=== PATIENT | female | born 1990 | race Two or more races ===

== ENCOUNTER 2025-02-03 16:55 | Inpatient (IN) | payer MEDICAID ==
[~2025-02-03] VITALS: Ht 154.9 cm; Wt 63.5 kg
[2025-02-03 17:45] LABS: MEAN PLATELET VOLUME 8.3 FL (7.4-10.4); RED CELL DISTRIBUTION WIDTH 13.0 % (11.5-14.5)
[2025-02-03 18:03] LABS: CREATININE 0.94 MG/DL (0.40-0.90); TOTAL CARBON DIOXIDE 28.4 MMOL/L (24-32); eCRCL 64 ML/MIN; eGFR 68 ML/MIN
--- NOTE | 2025-02-03 19:56 | Physician Documentation ---
History of Present Illness ~ Chief Complaint: Abdominal Pain w/vomiting Stated Complaint: STOMACH PAIN Time Seen by MD: 19:55 HPI Patient presents to the emergency room for evaluation of two week history of abdominal pain mainly in the epigastric area. She states it hurts in her back at times that has well. Pain is exacerbated with eating. No diarrhea or constipation. No fevers. She is taking proton pump inhibitors and Pepto-Bismol for the pain without relief. Medication Reconciliation Allergies: Coded Allergies: No Known Allergies (Unverified , 02/03/25) Scheduled Bismuth Subsalicylate (Pepto-Bismol), 1 TAB PO Q6H, (Reported) Omeprazole (Prilosec), 1 CAP PO QAM, (Reported) Simethicone (Gas-X), 1 TAB PO Q12H, (Reported) Review of Systems ROS All review of systems negative except as per HPI Physical Exam Vital Signs: Temperature: 97.6, Source: Temporal, Heart Rate: 68, Respiratory Rate: 16, BP: 97/65, Pulse Oximetry: 98, Weight: 63.500 Oxygen Flow Rate: 0 Physical Exam General: Patient is awake, alert, oriented x4 in no acute distress and well appearing.~ Head: Normocephalic and atraumatic. Eyes: Conjunctival normal. EOMI. PERRL. ENT: Mucous membranes moist. Neck: Supple, trachea is midline. Chest: Clear to auscultation bilaterally without rales, rhonchi, or wheezes. There is no accessory muscle use or retractions. Cardiac: RRR without murmurs, gallops, or rubs. Abd: Soft, nondistended, positive Morton's sign Progress Results/Orders Results/Orders Orders - REILLY MATHUR MD Ultrasound Of Abdomen (02/03/25 20:04) Page Hospitalist (02/03/25 21:56) Fill Out Med Reconciliation (02/03/25 21:56) Normal Saline 1000ml (0.9% Sodium Chlori (02/03/25 22:00) Completed Orders - REILLY MATHUR MD Ultrasound Of Abdomen (02/03/25 20:04) Ondansetron Disint. Tablet (Zofran Odt T (02/03/25 20:20) Ibuprofen Tablet (Motrin Tablet) (02/03/25 20:20) Piperacillin/Tazo 3.375gm/50ml (Zosyn 3. (02/03/25 22:00) Medications Received in ER Medications (Trade) Dose Ordered Sig/Aura Route PRN Reason Start Time Stop Time Status Last Admin Dose Admin (Zofran ODT tablet) 4 mg ONCE ONCE PO 02/03/25 20:20 02/03/25 20:21 DC 02/03/25 20:40 4 MG (Motrin tablet) 800 mg ONCE ONCE PO 02/03/25 20:20 02/03/25 20:21 DC 02/03/25 20:40 800 MG Vital Signs 02/03/25 02/03/25 02/03/25 02/03/25 17:17 19:01 20:17 20:17 Temp 97.6 97.5 Pulse 77 68 53 Resp 16 16 18 B/P (MAP) 127/67 97/65 (76) 95/63 (74) Pulse Ox 99 98 100 O2 Flow Rate 0 0 0 02/03/25 21:23 Temp 97.8 Pulse 58 Resp 18 B/P (MAP) 105/71 (82) Pulse Ox 99 O2 Flow Rate 0 Laboratory Tests Test 02/03/25 17:33 02/03/25 19:00 White Blood Count 6.2 Red Blood Count 4.34 Hemoglobin 13.2 Hematocrit 39.4 Mean Corpuscular Volume 90.7 Mean Corpuscular Hemoglobin 30.4 Mean Corpuscular Hemoglobin Concent 33.5 Red Cell Distribution Width 13.0 Platelet Count 345 Mean Platelet Volume 8.3 Neutrophils (%) (Auto) 65.4 Lymphocytes (%) (Auto) 28.6 Monocytes (%) (Auto) 4.4 Eosinophils (%) (Auto) 1.1 Basophils (%) (Auto) 0.5 Neutrophils # (Auto) 4.1 Lymphocytes # (Auto) 1.8 Monocytes # (Auto) 0.3 Eosinophils # (Auto) 0.1 Basophils # (Auto) 0.0 CBC Comment Sodium Level 142 Potassium Level 4.0 Chloride Level 106 Carbon Dioxide Level 28.4 Anion Gap 8 Blood Urea Nitrogen 10 Creatinine 0.94 H Estimated GFR/1.73 m2 68 BUN/Creatinine Ratio 10.6 Glucose Level 121 H Calcium Level 8.9 Total Bilirubin 0.2 Aspartate Amino Transf (AST/SGOT) 18 Alanine Aminotransferase (ALT/SGPT) 27 Alkaline Phosphatase 63 Total Protein 8.1 Albumin 3.9 Globulin 4.2 Albumin/Globulin Ratio 0.9 L Lipase 54 Chemistry Comments Urine Specimen Description Cln catch midstream Urine Color Yellow Urine Clarity Slightly cloudy Urine pH 8.0 Urine Specific [place] 1.015 Urine Protein Negative Urine Glucose (UA) Negative Urine Ketones Negative Urine Occult Blood Negative Urine Nitrite Negative Urine Bilirubin Negative Urine Urobilinogen 0.2 Urine Leukocyte Esterase Negative Urine RBC 0-2 Urine WBC 0-4 Urine Squamous Epithelial Cells Moderate Urine Bacteria None seen Urine Culture Indicated Not ind Volume Urine Centrifuged 10 ml Urine HCG, Qualitative Negative Urine Comment Medical Decision Making Findings Patient presents to the emergency room for evaluation of abdominal pain. Differentials include but are not limited to gastritis cholecystitis pancreatitis diverticulitis viral syndrome constipation small-bowel obstruction therefore emergent labs and imaging indicated. Labs reassuring however ultrasound shows findings consistent with cholecystitis. Zosyn initiated. We will admit patient for cholecystectomy Departure Admitted to Inpatient Unit: yes, to hospitalist Impression: Primary Impression: Cholecystitis Condition: Guarded Referrals: NO PRIMARY CARE PROVIDER (PCP) Signature Scribe Signature: No scribe Attestation: The note accurately reflects work and decisions made by me.Reilly Mathur MD 02/03/25 22:36 REILLY MATHUR MD Feb 03, 2025 19:56
[2025-02-03] MEDS ORDERED: OMEP40CA21 PO (20:37)
[2025-02-03] MEDS ORDERED: SIME125T7 PO (20:37)
[2025-02-03] MEDS ORDERED: BISM262T15 PO (20:37)
[2025-02-03] MEDS: ibuprofen tablet 400 MG TABLET PO ONE (20:40)
[2025-02-03] MEDS: ondansetron 4mg rapidly disintigrating tab PO ONE (20:40)
[2025-02-03 20:49] LABS: LEUKOCYTE ESTERASE ,URINE NEGATIVE (Neg); NITRITES, URINE NEGATIVE (Neg); OCCULT BLOOD,URINE NEGATIVE (Neg); URINE HCG NEGATIVE (NEG)
[2025-02-03 21:01] LABS: UA COLLECTION TYPE CLN CATCH MIDSTREAM
[2025-02-03 21:02] LABS: SQUAMOUS EPITHELIAL CELL,UR MODERATE /LPF (FEW)
--- NOTE | 2025-02-03 21:37 | RADIOLOGY REPORT ---
CLINICAL HISTORY: abd pain TECHNIQUE: Transabdominal sonogram was performed of the right upper quadrant. COMPARISON: None FINDINGS: The liver is increased in echogenicity. There is no focal parenchymal abnormality. No intrahepatic biliary ductal dilatation is present. The liver measures 13.6 cm. The gallbladder contains stones with mild 4 mm wall thickening. The sonographic osborne's sign was reported to be present. The common bile duct is normal in caliber, measuring 4 mm. The partially visualized pancreas is grossly unremarkable. The right kidney is normal in echogenicity and measures 9.4 cm in length. There is no evidence for hydronephrosis or calculi. IMPRESSION: Constellation of findings is concerning for acute cholecystitis. Diffuse hepatic steatosis.
[2025-02-03] MEDS ORDERED: magnesium Cl slow-release 64mg tablet PO PRN (23:10)
[2025-02-03] MEDS ORDERED: magnesium hydroxide 30ml (MOM) UD suspension PO PRN (23:10)
[2025-02-03] MEDS ORDERED: mag hydrox/Alum hydrox/simeth 30ml oral suspension PO PRN (23:10)
[2025-02-03] MEDS ORDERED: potassium Cl 40MEQ/1/2NS 520ml 520 ML IV PRN (23:10)
[2025-02-03] MEDS ORDERED: potassium Cl 20 mEq SR tablet PO PRN ×2 (23:10)
[2025-02-03] MEDS ORDERED: magnesium sulf-water 4G/100mL 100 ML IV PRN (23:10)
[2025-02-03] MEDS ORDERED: HYDROcodone/acetaminophen 10/325mg tab PO PRN (23:10)
[2025-02-03] MEDS ORDERED: magnesium sulf-water 2g/50mL 50 ML IV PRN (23:10)
[2025-02-03] MEDS: normal saline 1000ml 1,000 ML IV SCH (23:13)
[2025-02-03] MEDS: normal saline 1000ml 1,000 ML IV ONE (23:13)
[2025-02-03] MEDS: piperacillin/tazo 3.375gm/50ml 50 ML IV ONE (23:13)
--- NOTE | 2025-02-03 23:19 | HISTORY AND PHYSICAL-Residence ---
History & Physical Providers to CC Resident Creating Document: DAYAMI CHURCH RES ~ History of Present Illness Reason for Admit\Complaint: Abdominal pain History of Present Illness This 35-year-old female presented to the ER with a chief concern of worsening abdominal pain in the last two weeks. She does not understand [place] and speaks [place]. Used parts interpreter: Name-Ms. Zamorano, court interpreter ID - [id number]. Complains of abdominal pain for the last two weeks which got worse in the last few days. Constant diffuse abdominal pain which gets worse with solid food intake. Has nausea and vomited thrice in the last two weeks. Food in the vomitus and denies any blood in it. Has chills but denies any fever. Mentioned that the pain radiates to her back and gets worse when she takes a deep breath. She is also waking up in the middle of the night with the pain in the last few days. Had bloating in the last three days and so presented to the ER. Had bowel movement about two days back but mentioned that it was because she did not eat much. Denies passing any gas. No chest pain, shortness of breath, diarrhea, dizziness, dysuria or other concerns. Used omeprazole and Bismol which did not help with the symptoms. Mentioned that she had gastritis in the past Allergies: Coded Allergies: No Known Allergies (Unverified , 02/03/25) Home Medications Home Medications Active Reported Pepto-Bismol (Bismuth Subsalicylate) 262 Mg Tab.chew 1 Tab PO Q6H 3 Days Gas-X (Simethicone) 125 Mg Tab.chew 1 Tab PO Q12H 30 Days Prilosec (Omeprazole) 40 Mg Capsule 1 Cap PO QAM Past Medical History Past Medical History Gastritis Past Surgical History Surgical History Comment about 4 years back Past Social History Social History Comment Denies smoking tobacco (tried few cigarettes when she was a teenager), occasionally drinks alcohol-one or two glasses of wine in couple of months. Denies abusing any other recreational drugs ROS ROS Constitutional: Chills present. No fever, dizziness, weakness, weight gain or loss Eyes: No pain, erythema, discharge, blurring of vision ENT: No sore throat, epistaxis, tinnitus Cardiovascular: No chest pain, chest pressure, chest discomfort, palpitations, syncope, lower extremity edema, paroxysmal nocturnal dyspnea Respiratory: No shortness of breath, cough, hemoptysis Gastrointestinal: Nausea, vomiting and abdominal pain, abdominal pain present. Normal appetite. No diarrhea, constipation, hematemesis, melena or fresh blood Genitourinary: No frequency, urgency, nocturia, hematuria or dysuria Musculoskeletal: No arthralgias or myalgias Integumentary: No change in skin, hair, nails. No swelling, bruising, abrasions Neurologic: No headache, neck pain, numbness or tingling of the extremities, weakness Psychiatric: No delusions, depression, loss of interest in normal activity or change in sleep pattern, hallucinations, suicidal ideations Endocrine: No fatigue, weakness, polydipsia, polyuria, change in appetite, heat or cold intolerance, sweating, dry skin Hematological: No bleeding, petechiae, bruising Allergies: No asthma or urticaria Exam Vitals: Vital Signs Date Time Temp Pulse Resp B/P (MAP) Pulse Ox O2 Delivery O2 Flow Rate FiO2 02/03/25 22:30 97.6 76 20 103/67 (79) 100 0 General: Alert and oriented x4 HEENT: Normocephalic and atraumatic. Pupils equal round reactive to light and accommodation. Extraocular movements intact. Oral and nasal mucosa moist Neck: Trachea is in midline. No masses or JVD Chest: Bilateral normal breath sounds. No crackles, rhonchi or wheezes Cardiovascular: Regular rate and rhythm. S1-S2 normal. No rubs or murmurs Abdomen: Soft, mildly distended and tenderness present in epigastric region, right hypochondriac, left iliac and lumbar region. Morton's sign positive. Normoactive bowel sounds Extremities: No cyanosis, clubbing or edema Central Nervous System: No gross sensory or motor deficits. CN II to XII grossly intact. No cerebellar signs Musculoskeletal: No spinal or paraspinal tenderness Skin: Warm and dry Diagnostic Data Last Recorded Lab Results: 02/03/25 1733 02/03/25 173 Advance Care Planning Advanced Care plannin - 30 Minutes Additional Plan Acute cholecystitis No elevated white count, fever, tachypnea tachycardia Abdominal ultrasound showed acute cholecystitis, diffuse hepatic steatosis, normal CBD Abdomen/pelvis CT ordered as patient complains of diffuse abdominal pain and also has tenderness in the left lumbar and iliac region Received Zosyn 3.375 g IV once and 1 L normal saline bolus in the ER Started Zosyn 3.375 g IV q.8h Received Zofran 4 mg p.o. once and ibuprofen 100 mg p.o. once in the ER Started Protonix 40 mg IV daily Started normal saline at 100 cc/hour Lipase not elevated. Pending lactic acid UA did not show any signs of infection. Urine HCG negative Chest x-ray shows no acute cardiopulmonary abnormalities ER provider left a message to the on-call surgeon-Dr. Cardenas Recommend reconsulting the surgeon in a.m. NPO now for possible surgery tomorrow Continue Zofran 4 mg IV q.6h p.r.n. for nausea/vomiting Continue morphine 1 mg IV q.4h p.r.n. for moderate pain and morphine 2 mg IV q.4h p.r.n. for severe # Pending EKG DVT prophylaxis: Lovenox 40 mg subcutaneous daily starting tomorrow night GI prophylaxis: Protonix 40 mg IV daily Dayami Church MD Internal Medicine Resident, PGY 3 Date of Service: Feb 03, 2025 Billing Provider: LIZZETH JAY MD Common Visit Codes: [id number] INP/OBS CARE (HIGH) Assessment/Plan Assessment Evaluated patient with the help of resident. Discussed the case with her. Reviewed her notes. Agree with her assessments and plans. I also reviewed the patient's records labs, radiology along with notes from other providers. No additional points at this time. DAYAMI CHURCH RES Feb 03, 2025 23:19 LIZZETH JAY MD Feb 04, 2025 04:05
--- NOTE | 2025-02-03 23:30 | RADIOLOGY REPORT ---
CLINICAL HISTORY: rule out aspiration TECHNIQUE: Single view of the chest was obtained. COMPARISON: None FINDINGS: The heart size and pulmonary vasculature are normal. The lungs are clear. IMPRESSION: NO ACUTE CARDIOPULMONARY PROCESS.
--- NOTE | 2025-02-03 23:55 | ELECTROCARDIOGRAPH REPORT ---
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
[2025-02-04] VITALS (24 sets, daily range): BP systolic 77–119; BP diastolic 33–77; PULSE 67–82; RESP 13–20; TEMP 97.4–98.8; O2SAT 95–100
[2025-02-04] MEDS: normal saline 250ml IV soln 250 ML IV ONE (04:59)
[2025-02-04 06:06] LABS: MEAN PLATELET VOLUME 7.9 FL (7.4-10.4); RED CELL DISTRIBUTION WIDTH 13.2 % (11.5-14.5)
[2025-02-04 06:14] LABS: APTT 25 SECONDS (22-32); INR 1.1 INR
[2025-02-04 06:19] LABS: CREATININE 0.87 MG/DL (0.40-0.90); TOTAL CARBON DIOXIDE 27.3 MMOL/L (24-32)
[2025-02-04 06:20] LABS: PHOSPHORUS 3.3 MG/DL (2.3-4.5); eCRCL 69 ML/MIN; eGFR 75 ML/MIN
[2025-02-04] MEDS: piperacillin/tazo 3.375gm/50ml 50 ML IV SCH (07:44)
[2025-02-04] MEDS: K and/or MAG REPLACEMENT MC SCH (08:00)
[2025-02-04] MEDS: normal saline 1000ml 1,000 ML IVB ONE (10:41)
[2025-02-04] MEDS ORDERED: morphine 4 MG/ML inj SYRINge IV PRN (11:58)
[2025-02-04] MEDS: INDOCYANINE GREEN 25 MG/10 ML VIAL IV ONE (13:21)
--- NOTE | 2025-02-04 13:44 | CONSULTATION REPORT ---
History of Present Illness Providers to CC CC: ASHLEY KAUR MD ~ Reason for Admit\\Admit Dx: Abdominal pain History of Present Illness Otherwise healthy 35-year-old woman who reports a history of intermittent epigastric and right upper quadrant pain that radiates around to the back. Severe episode yesterday evening and presented to the emergency room last night where she was found to have both clinical and radiographic evidence of acute calculous cholecystitis. She was admitted for surgical consultation and management. I saw her earlier this morning. Her pain had mostly resolved and was only between her shoulder blades. This was by far, the worst "attack" that she has had historically. She denies any history of jaundice, dark urine or dwayne colored stool. Allergies: Coded Allergies: No Known Allergies (Unverified , 02/03/25) Home Medications Home Medications Active Reported Pepto-Bismol (Bismuth Subsalicylate) 262 Mg Tab.chew 1 Tab PO Q6H 3 Days Gas-X (Simethicone) 125 Mg Tab.chew 1 Tab PO Q12H 30 Days Prilosec (Omeprazole) 40 Mg Capsule 1 Cap PO QAM Past Medical History Medical History Comment Gastroesophageal reflux disease Past Surgical History Surgical History Comment None Past Family History Family History Comment Noncontributory Past Social History Social History Comment neg x 3 Physical Exam Last Vital Signs Recorded: RN Vital Signs have been reviewed: Yes, Temperature: 97.4, Source: Oral, Heart Rate: 69, Respiratory Rate: 18, BP: 86/49, Pulse Oximetry: 95, Weight: 63.500 General Appearance: alert, WD/WN EENT: PERRL/EOMI; No: scleral icterus (R), scleral icterus (L) Neck: normal inspection, supple Respiratory: lungs clear Cardiovascular: regular rate, rhythm Gastrointestinal Softly distended Mild epigastric and right upper quadrant tenderness to palpation No palpable masses or hernias No rebound tenderness Morton sign negative Rectal: deferred Back: normal inspection, no CVA tenderness Extremities: normal range of motion, non-tender, no edema Neurologic: oriented x4 Psychiatric: normal mood/affect; No: anxiety Skin: normal color, warm/dry Lymphatic: no adenopathy Review of Systems ROS ROS Comments: Reviewed and negative with the exception of those found in the history of present illness Results Diagram Lab Result Diagram: 02/04/2551502/04/25515 Assessment/Plan Problems/Diagnosis: (1) Acute calculous cholecystitis Assessment & Plan: The risks, benefits, and alternatives to a robotic assisted, laparoscopic possible open cholecystectomy were discussed with the patient. Risks include, but are not limited to, bleeding, infection, injury to an intra- abdominal structure, injury to the biliary tree, postoperative bile leak and retained common bile duct stone. Patient verbalized understanding and wishes to proceed with surgery. Will do so today. ASHLEY KAUR MD Feb 04, 2025 13:44
[2025-02-04] MEDS ORDERED: iohexol 300mg/ml 100ml inj. ONE (13:47)
[2025-02-04] MEDS: ondansetron/PF 4mg/2ml inj IV PRN ×2 (14:09→18:08)
[2025-02-04] MEDS ORDERED: BUPIVAcaine 2.5mg/ml inj 50ml vial (contains preservative) ONE (14:38)
[2025-02-04] MEDS ORDERED: LIDOcaine 1% 30ml preserv. free vial ONE (14:38)
--- NOTE | 2025-02-04 14:40 | RADIOLOGY REPORT ---
CLINICAL INFORMATION: Suspected acute cholecystitis. Abdominal pain. TECHNIQUE: Axial CT images of the abdomen were obtained after the uneventful administration of 100 mL Omnipaque 300 IV contrast. Coronal and sagittal reformatted images were obtained, reviewed, and stored. All CT scans at this medical facility are performed using dose modulation techniques as appropriate to a performed exam including the following: Automated exposure control was utilized; adjustment of the MA and/or KV according to patient size; and use of iterative reconstruction technique. CTDIvol = 9.79 mGy DLP = 348.06 mGy-cm COMPARISON: US ULTRASOUND OF ABDOMEN on DOS: 02/03/25 FINDINGS: Lung bases: Lung bases are clear. Liver: Unremarkable. No abnormal density or focal lesion. Biliary: Distended gallbladder with gallbladder wall thickening. Faintly visualized gallstones in the gallbladder. Cystic duct is also distended. Common bile duct is within normal limits in size. No intrahepatic biliary ductal dilatation. Spleen: Unremarkable. Pancreas: Unremarkable. No inflammatory changes, ductal dilatation, or mass identified. Adrenal glands: 0.9 cm left adrenal nodule is indeterminate on this single phase of contrast. Kidneys: No hydronephrosis or mass. Aorta/Vascular: No aneurysm or significant calcification. Lymph Nodes: No mass or lymphadenopathy. Bowel/mesentery: Nonspecific nondilated fluid-filled small bowel loops. No small bowel obstruction. Appendix is visualized and appears unremarkable. No free air or free fluid visualized. Abdominal wall: No mass or hernia. Bones: No acute fracture or focal intraosseous lesion. IMPRESSION: 1. Distended gallbladder with gallbladder wall thickening and prominence of the cystic duct, consistent with reported clinically suspected acute cholecystitis. 2. Indeterminate left adrenal nodule. Nonemergent MRI adrenal mass protocol could be obtained to further characterize.
[2025-02-04] MEDS ORDERED: midazolam 1 mg/ML 2ml injection ONE (15:58)
[2025-02-04] MEDS ORDERED: fentaNYL/PF 50MCG/1 ML 2ML syringe ONE (15:58)
[2025-02-04] MEDS ORDERED: propofol inj 20 ML IV ONE (16:00)
[2025-02-04] MEDS ORDERED: rocuronium 10mg/ml inj IV ONE (16:01)
[2025-02-04] MEDS ORDERED: glycopyrrolate 0.2mg/ml inj ONE (16:58)
[2025-02-04] MEDS ORDERED: ondansetron/PF 4mg/2ml inj ONE (16:58)
[2025-02-04] MEDS ORDERED: dexamethasone sod phosphate 4mg/ml inj. ONE (16:58)
[2025-02-04] MEDS ORDERED: HYDROcodone/acetaminophen 5mg/325mg tablet PO PRN (17:30)
[2025-02-04] MEDS ORDERED: PCA WASTE DOCUMENTATION 1 MG ML MC SCH (17:30)
--- NOTE | 2025-02-04 17:38 | OPERATIVE REPORT ---
Operative Report Providers to CC CC: MICHAEL KAUR MD ~ Date of Procedure: Feb 04, 2025 Pre-Operative Diagnosis: ACUTE CHOLECYSTITIS Post-Operative Diagnosis Acute calculous cholecystitis Procedure Performed Robotic assisted laparoscopic cholecystectomy Surgeon: Michael Kaur MD FACS Core Blower Operator None Anesthesiologist: Roberth Cano Type of Anesthesia: General Findings: Acute calculous cholecystitis with a edematous gallbladder and large stone lodged in the gallbladder neck Clear visualization of the critical view of safety, confirmed with fluorescent cholangiography/firefly Wound class II Complications None Prosthetics\Implants used: None Estimated Blood Loss: Minimal Specimen Removed: Gallbladder Description of Procedure: Patient was brought to the operating room and identified by the nursing staff and the attending physician. Patient was placed supine and general anesthesia was induced. A supraumbilical, midline incision was made, long enough to accommodate a 12 mm Roach port. Roach technique was used to gain entry into the abdomen. Stay sutures were placed in the Roach port anchored to the fascia. Abdomen was insufflated without incident. Laparoscope was inserted and the abdomen surveyed. Secondary, 8.5 mm robotic trochars were placed in the left upper quadrant and right lateral abdomen. Robotic arm was docked to the patient. Robotic instruments were guided intra- abdominally under laparoscopic visualization. Gallbladder was massively distended and edematous consistent with the acute calculous cholecystitis. Gallbladder was just pliable enough to grasp it with the robotic ProGrasp. Fundus of the gallbladder was grasped and retracted over the dome of the liver. Infundibulum was retracted towards the right lower quadrant. Firefly technology was used to obtain a fluorescent cholangiogram and visualize the pertinent anatomy. Cystic duct was not clearly visualized, but the common duct was clearly visible and fluoresced using firefly/fluorescent cholangiography. Peritoneum overlying the triangle was incised with hook electrocautery. This allowed for circumferential dissection of the cystic duct and artery. Critical view of safety was obtained. Proximal portion of the cystic duct was now visible, fluorescent with contrast. Duct and artery were then clipped with hemo-lock clips and both structures divided. Gallbladder was retracted laterally and dissected out of the gallbladder fossa. Gallbladder was set aside and fluorescent cholangiogram of the gallbladder fossa was used to confirm no evidence of bile leak. Gallbladder was placed in a laparoscopic retrieval bag. Secondary trochars were removed and the abdomen allowed to deflate. Roach port was removed with the specimen in its retrieval bag. Fascia at the umbilical port site was closed with 0 Vicryl sutures. Skin was closed with 4-0 Monocryl sutures in a subcuticular fashion About 40 cc of local anesthetic was used during the case. Sterile dressings were applied. Patient was awakened and taken to the postanesthesia care unit in stable condition. Counts repoted as correct: Yes MICHAEL KAUR MD Feb 04, 2025 17:38
[2025-02-04] MEDS: ringers solution, lacted 1,000 ML IV SCH (18:00)
[2025-02-04] MEDS ORDERED: hydrALAZINE 20mg/ml inj. IV PRN (18:00)
[2025-02-04] MEDS ORDERED: fentaNYL/PF 50MCG/1 ML 2ML syringe IV PRN ×2 (18:00)
[2025-02-04] MEDS ORDERED: labetalol 20mg/4ml (5mg/ml) syringe IV PRN (18:00)
[2025-02-04] MEDS ORDERED: HYDROmorphone/PF 0.2 MG/ML SYRINGE IV PRN ×2 (18:00)
[2025-02-04] MEDS: morphine 4 MG/ML inj SYRINge IV PRN (18:04)
[2025-02-04] MEDS: acetaminophen 1,000mg/100ml IV 100 ML IV PRN (18:12)
--- NOTE | 2025-02-04 19:27 | PROGRESS NOTE ---
Daily Progress Note Providers to CC ~ Antibiotic Timeout Antibiotic Ordered?: Yes Subjective Patient was seen in presence of family members before she left for surgery. Dr. Cardenas did Robotic assisted laparoscopic cholecystectomy for acute calculous cholecystitis today. Objective Vital Signs Date Time Temp Pulse Resp B/P (MAP) Pulse Ox O2 Delivery O2 Flow Rate FiO2 02/04/25 18:04 15 02/04/25 17:14 97.7 82 93/45 (61) 100 Mask 6.0 Result Diagram: 02/04/2516 02/04/25 0516 Coagulation Studies Laboratory Tests Test 02/04/25 05:16 Prothrombin Time 10.9 SECONDS (9.0-12.0) INR International Normalized Ratio 1.1 INR Activated Partial Thromboplast Time 25 SECONDS (22-32) Coagulation Comments Problem\Assessment\Plan Acute cholecystitis No elevated white count, fever, tachypnea tachycardia Abdominal ultrasound showed acute cholecystitis, diffuse hepatic steatosis, normal CBD Abdomen/pelvis CT showed Distended gallbladder with gallbladder wall thickening and prominence of the cystic duct, consistent with reported clinically suspected acute cholecystitis. on Zosyn 3.375 g IV q.8h Received Zofran 4 mg p.o. once and ibuprofen 100 mg p.o. once in the ER on Protonix 40 mg IV daily continue normal saline at 100 cc/hour Lipase not elevated. normal lactic acid Continue Zofran 4 mg IV q.6h p.r.n. for nausea/vomiting Continue morphine 1 mg IV q.4h p.r.n. for moderate pain and morphine 2 mg IV q.4h p.r.n. for severe 02/04/25-Dr. Cardenas did Robotic assisted laparoscopic cholecystectomy for acute calculous cholecystitis today. # blood pressure was borderline manual blood pressure checked it was 90 /66mmhg patient also received normal saline bolus in AM DVT prophylaxis: Lovenox 40 mg subcutaneous daily starting tomorrow night GI prophylaxis: Protonix 40 mg IV daily Patient's current condition is guarded we will continue to monitorand follow patient in a.m. Date of Service: Feb 04, 2025 Billing Provider: LAURA ALDRIDGE MD Common Visit Codes: [id number] INP/OBS CARE(MOD) LAURA ALDRIDGE MD Feb 04, 2025 19:27
[2025-02-04] MEDS: HYDROcodone/acetaminophen 10/325mg tab PO PRN (19:52)
[2025-02-04] MEDS: enoxaparin 40mg/0.4ml syringe SQ SCH (23:08)
[2025-02-05] VITALS (7 sets, daily range): BP systolic 90–106; BP diastolic 58–65; PULSE 61–72; RESP 16–20; TEMP 97.6–98.1; O2SAT 99–100
[2025-02-05 07:18] LABS: MEAN PLATELET VOLUME 8.3 FL (7.4-10.4); RED CELL DISTRIBUTION WIDTH 13.0 % (11.5-14.5)
[2025-02-05 07:29] LABS: APTT 26 SECONDS (22-32); INR 1.1 INR
[2025-02-05 07:44] LABS: CREATININE 0.79 MG/DL (0.40-0.90); PHOSPHORUS 3.5 MG/DL (2.3-4.5); TOTAL CARBON DIOXIDE 24.8 MMOL/L (24-32); eCRCL 76 ML/MIN; eGFR 83 ML/MIN
[2025-02-05] MEDS ORDERED: ACET-1008 PO (14:54)
[2025-02-05] MEDS ORDERED: HYDR-3965 PO (14:56)
[2025-02-05] MEDS ORDERED: METR-159 PO (14:56)
[2025-02-05] MEDS ORDERED: CIPR-259 PO (14:56)
[2025-02-05] MEDS ORDERED: DOCU-148 PO (14:56)
--- NOTE | 2025-02-05 19:10 | DISCHARGE SUMMARY ---
Discharge Summary Providers to CC ~ Discharge Summary Admission Diagnosis: ACUTE CHOLECYSTITIS Hospital Course DATE OF ADMISSION: February 03, 2025 DATE OF DISCHARGE:February 05, 2025 CBC testing done on February 05, 2025 WBC 8.7 hemoglobin 12.1 hematocrit 35.4 platelet count 308. CMP done on February 05, 2025 sodium 139 potassium 3.9 creatinine 0.79 GFR 83 normal liver enzymes lipase 54. Blood culture showed no growth after one day. CT ABDOMENIMPRESSION: 1. Distended gallbladder with gallbladder wall thickening and prominence of the cystic duct, consistent with reported clinically suspected acute cholecystitis. 2. Indeterminate left adrenal nodule. Nonemergent MRI adrenal mass protocol could be obtained to further characterize. CHEST,SINGLE VIEW IMPRESSION: NO ACUTE CARDIOPULMONARY PROCESS. ULTRASOUND OF ABDOMENIMPRESSION: Constellation of findings is concerning for acute cholecystitis. Diffuse hepatic steatosis. Discharge Diagnosis\\Comment: Acute calculous cholecystitis Operations\\Procedures: Robotic assisted laparoscopic cholecystectomy Consultants: Dr. Cardenas Complications: None Condition on DC: Stable New Medications: Ciprofloxacin HCl (Cipro) 500 Mg Tablet 1 TAB PO Q12H for 5 Days, #10 TAB Docusate Sodium (Colace) 100 Mg Capsule 1 CAP PO Q12H for 7 Days, #14 CAP 0 Refills Hold for persistent loose stools Hydrocodone Bit/Acetaminophen 5/325 MG ([place] 5/325 MG) 5 Mg/325 Mg Tablet 1 TAB PO Q6H PRN for moderate or severe pain 4-10 for 5 Days, #20 TAB Metronidazole* (Flagyl*) 500 Mg Tablet 1 TAB PO BID for 5 Days, #10 TAB Changed Medications: Acetaminophen (Tylenol) 325 Mg Tablet 1 TAB PO Q6H PRN for MILD PAIN , FEVER for 5 Days, #21 TAB (Changed from: QDAY PRN; 30; 30) Continued Medications: Omeprazole (Prilosec) 40 Mg Capsule 1 CAP PO QAM, CAP Discontinued Medications: Bismuth Subsalicylate (Pepto-Bismol) 262 Mg Tab.chew 1 TAB PO Q6H for 3 Days, #30 TAB 0 Refills Simethicone (Gas-X) 125 Mg Tab.chew 1 TAB PO Q12H for gas for 30 Days, #60 TAB 0 Refills Discharge Summary: As per admitting provider's history and physical note" This 35-year-old female presented to the ER with a chief concern of worsening abdominal pain in the last two weeks. She does not understand Uzbek and speaks Kazakh. Used pipe crew foreman: Name-Ms. Zamorano, office administration ID -[id number]. Complains of abdominal pain for the last two weeks which got worse in the last few days. Constant diffuse abdominal pain which gets worse with solid food intake. Has nausea and vomited thrice in the last two weeks. Food in the vomitus and denies any blood in it. Has chills but denies any fever. Mentioned that the pain radiates to her back and gets worse when she takes a deep breath. She is also waking up in the middle of the night with the pain in the last few days. Had bloating in the last three days and so presented to the ER. Had bowel movement about two days back but mentioned that it was because she did not eat much. Denies passing any gas. No chest pain, shortness of breath, diarrhea, dizziness, dysuria or other concerns. Used omeprazole and Bismol which did not help with the symptoms. Mentioned that she had gastritis in the past" During hospitalization patient was treated for Acute cholecystitis No elevated white count, fever, tachypnea tachycardia Abdominal ultrasound showed acute cholecystitis, diffuse hepatic steatosis, normal CBD Abdomen/pelvis CT showed Distended gallbladder with gallbladder wall thickening and prominence of the cystic duct, consistent with reported clinically suspected acute cholecystitis. on Zosyn 3.375 g IV q.8h Received Zofran 4 mg p.o. once and ibuprofen 100 mg p.o. once in the ER on Protonix 40 mg IV daily continue normal saline at 100 cc/hour Lipase not elevated. normal lactic acid Continue Zofran 4 mg IV q.6h p.r.n. for nausea/vomiting Continue morphine 1 mg IV q.4h p.r.n. for moderate pain and morphine 2 mg IV q.4h p.r.n. for severe 02/04/25-Dr. Cardenas did Robotic assisted laparoscopic cholecystectomy for acute calculous cholecystitis today. # blood pressure was borderline manual blood pressure checked it was 90 /66mmhg patient also received normal saline bolus in AM . Blood Pressure is stable during hospitalization Patient is feeling better she has been afebrile and getting discharged home in stable condition. Patient is seen and examined on the day of discharge. All questions and queries answered to the best of my professional medical knowledge. I heard patient's concerns and address appropriately. Patient was cleared by Dr Cardenas and Physical therapy team for home discharge . cytology laboratory manager involved in patient's discharge plan. Discharge instructions provided to the patientActividad segn tolerancia No levantar ms de 7 kg kvng 2 semanas Dieta segn tolerancia Dejar los vendajes/apsitos puestos kvng 10 a 14 [place] Puede ducharse a partir de maana Myriam de seguimiento con el Dr. Cardenas en 2 o 3 semanas. Llamar para solicitar myriam: [phone] Repeat CBC sed rate procalcitonin in 3-5 days with PCP in outpatient setting. Advanced diet from full liquid to regular diet as tolerated. General-patient not in any acute distress, alert awake oriented, age- appropriate, looks comfortable HEENT-atraumatic normocephalic, neck supple without elevated JVD, no thyromegaly or carotid bruit. No lymphadenopathy bilaterally. Eyes-no icterus or pallor seen in eyes Chest-clear to auscultation bilaterally, breathing nonlabored no tachypnea, no wheezing, no crepitation, no crackles. Heart-S1-S2 normal, regular heart rate no murmur Abdomen bowel sounds positive on auscultation, soft nondistended , surgical dressing present over abdomen, tenderness present on palpation over surgical site and right upper quadrant, no guarding, no rigidity Skin no active skin rash Neurology-grossly intact, nonfocal alert awake oriented Extremity- no pedal edema able to move all 4 extremities Psychiatry - patient is not confused or agitated cooperated during physical examination *Problems/Diagnosis: (1) Acute calculous cholecystitis Total Time Spent on D/C: > 30 Minutes Date of Service: Feb 05, 2025 Billing Provider: LAURA ALDRIDGE MD Common Visit Codes: 45176-SLB/OBS DISCH DAY >30min LAURA ALDRIDGE MD Feb 05, 2025 19:09
== END 2025-02-05 16:50 | disposition home or self-care (01) | DRG 263 ==
LOC: ER 16:57 → ED HOLD 23:10 → EDBEDREQ 02-04 00:23 → ORTHO 4S 02-04 01:15 → SUR 3N 02-05 12:33
PROVIDERS: ADMIT Internal Medicine Critical Care Medicine; ATTEND Internal Medicine
PROC: 0FT44ZZ Resection of Gallbladder, Percutaneous Endoscopic Approach (ICD-10-PCS; 2025-02-04)
PROC: BF131ZZ Fluoroscopy of Gallbladder and Bile Ducts using Low Osmolar Contrast (ICD-10-PCS; 2025-02-04)
PROC: BW211ZZ Computerized Tomography (CT Scan) of Abdomen and Pelvis using Low Osmolar Contrast (ICD-10-PCS; 2025-02-04)
PROC: 8E0W4CZ Robotic Assisted Procedure of Trunk Region, Percutaneous Endoscopic Approach (ICD-10-PCS; principal; 2025-02-04 15:48)
DX: K80.00 Calculus of gallbladder with acute cholecystitis without obstruction (principal); K21.9 Gastro-esophageal reflux disease without esophagitis; K82.8 Other specified diseases of gallbladder; Z60.3 Acculturation difficulty; Z98.891 History of uterine scar from previous surgery; Z79.899 Other long term (current) drug therapy
CPT/HCPCS: 36415; 71045; 74177; 76700; 80053; 81001; 81025; 82948; 83605; 83690; 83735; 84100; 85025; 85610; 85730; 87040; 87081; 93005; 96365; 99285; A4215; A4618; A7000; G0378; J0131; J1100; J1650; J2003; J2250; J2270; J2405; J2470; J2543; J2704; J2710; J3010; J3490; J7030; J7050; J7120; Q9967